=== PATIENT | male | born 1990 | race Hispanic/Latino ===

== ENCOUNTER 2018-01-06 11:35 | Emergency (ER) | payer OTHER ==
[2018-01-06] MEDS ORDERED: Sodium Chloride 0.9% 1,000 ML IV STA ×2 (12:18→15:26)
--- NOTE | 2018-01-06 12:43 | ED PDOC ---
HPI: General Adult Time Seen by Provider: 01/06/18 12:02 Chief Complaint (Nursing): GI Problem Chief Complaint (Provider): GI problem History Per: Patient History/Exam Limitations: no limitations Onset/Duration Of Symptoms: Days (x3) Current Symptoms Are (Timing): Still Present Additional Complaint(s): 27 year old male presents to the ED complaining of fever and constipation. For 3 weeks, patient has been unable to have normal bowel movements and had a small bowel movement 3 days ago. Patient had tried straining but felt like he was going to pass out so stopped. No blood was present. Patient is also complaining of abdominal pain and discomfort. He states he had spaghetti and meatballs and felt nauseous and felt like vomiting. He felt his whole body shake or twitch. He indicates he was sweating but also felt really cold. Today was his first day off from work so presented to the ED. Patient is unable to tolerate PO at this time. Denies fever, SOB, CP, pain on urination, testicular pain or swelling, or penile discharge. Patient is otherwise healthy. Patient is allergic to penicillin and doxycycline which causes rash when taken. Patient works as a police captain senior. PMD: none Past Medical History Reviewed: Historical Data, Nursing Documentation, Vital Signs Vital Signs: Last Vital Signs Temp 100.0 F H 01/06/18 19:43 Pulse 90 01/06/18 19:43 Resp 16 01/06/18 19:43 BP 133/71 01/06/18 19:43 Pulse Ox 100 01/06/18 19:43 - Medical History PMH: Gastritis Other PMH: Stomach ulcer - Surgical History Surgical History: No Surg Hx - Family History Family History: States: Other Other Family History: Father had diverticulitis leading to bowel perforation requiring colostomy - Social History Drugs: Denies - Home Medications Home Medications: Ambulatory Orders Medication Instructions Recorded Aluminum Hydroxide/Magnesium H 30 ml PO QID #300 ml 03/24/16 [Maalox 30 ml] Famotidine [Pepcid] 20 mg PO DAILY #10 tab 03/24/16 Lidocaine HCl [Lidocaine HCl 15 ml MM BID #150 ml 03/24/16 Viscous] - Allergies Allergies/Adverse Reactions: Allergies Allergy/AdvReac Type Severity Reaction Status Date / Time doxycycline Allergy RASH Verified 03/24/16 17:55 Penicillins Allergy RASH Verified 03/24/16 17:55 Review of Systems ROS Statement: Except As Marked, All Systems Reviewed And Found Negative Constitutional: Positive for: Fever Cardiovascular: Negative for: Chest Pain Respiratory: Negative for: Shortness of Breath Gastrointestinal: Positive for: Abdominal Pain, Constipation Genitourinary Male: Negative for: Other (pain with urination and testicular pain /swelling) Neurological: Positive for: Other (Body shaking) Physical Exam - Reviewed Nursing Documentation Reviewed: Yes Vital Signs Reviewed: Yes - Physical Exam Appears: Positive for: Non-toxic, No Acute Distress, Uncomfortable Head Exam: Positive for: ATRAUMATIC, NORMOCEPHALIC Skin: Positive for: Normal Color, Warm, Dry Eye Exam: Positive for: Normal appearance Neck: Positive for: Normal, Painless ROM Cardiovascular/Chest: Positive for: Regular Rate, Rhythm. Negative for: Murmur Respiratory: Positive for: Normal Breath Sounds. Negative for: Wheezing, Respiratory Distress Gastrointestinal/Abdominal: Positive for: Tenderness (Diffusely), Guarding Male Genital Exam: Positive for: other (Deferred) Extremity: Positive for: Normal ROM Neurologic/Psych: Positive for: Alert, Oriented. Negative for: Motor/Sensory Deficits - Laboratory Results Result Diagrams: 01/06/18 13:01 01/06/18 13:01 - ECG O2 Sat by Pulse Oximetry: 98 (RA) Pulse Ox Interpretation: Normal Medical Decision Making Medical Decision Making: Initial Impression: Patient with 3 weeks with constipation and 1 day of fever. Work up for intrabdominal pathology, possible obstruction. Initial Plan: --Type and Screen --Venous blood gas --ECG --CMP --Lipase --CBC --Partial thromboplastin --Prothrombin --Sodium chloride 1000mL IV --Tylenol 650mg PO --Zofran 4mg IV --Urinalysis Initially labs with abdominal enzymes sent and abdominal chest x-rays, IV fluids , Tylenol, and Zofran sent. Possible CT abd/pelvis to r/o obstruct. Reassess patient. Time: 1844 CT ABD RESULST FINDINGS: Lung bases: Minimal dependent microatelectasis. ABDOMEN: Liver: There is hepatomegaly and fatty infiltration of the liver. Gallbladder and bile ducts: Unremarkable. No calcified stones. No ductal dilation. Pancreas: Unremarkable. No mass. No ductal dilation. Spleen: The spleen is mildly prominent Adrenals: Unremarkable. No mass. Kidneys and ureters: Unremarkable. No solid mass. No hydronephrosis. Stomach and bowel: Small fat-containing non-bowel containing umbilical hernia. Suggestion of mild wall thickening of the terminal ileum which may be due to nondistention. Moderate deformity fecal loading of the colon. PELVIS: Appendix: Normal appendix Bladder: Distended bladder Reproductive: Unremarkable as visualized. ABDOMEN and PELVIS: Intraperitoneal space: Unremarkable. No free air. No significant fluid collection. Bones/joints: There is a mild pectus excavatum deformity of the anterior chest wall. No acute fracture. No dislocation. Soft tissues: See above. Vasculature: Unremarkable. No abdominal aortic aneurysm. Lymph nodes: There are right lower quadrant lymph nodes which can be seen with viral syndrome/mesenteric adenitis in the correct clinical situation. This finding can also be secondary to a variety of bacterial or other inflammatory processes, but clinical correlation with appropriate follow-up recommended. IMPRESSION: Right lower quadrant lymph nodes.Compatible with mesenteric adenitis in the correct clinical presentation. This may be on basis of a terminal ileitis, the latter requires clinical correlation. Hepatosplenomegaly Thank you for allowing us to participate in the care of your patient. Dictated and Authenticated by: Jasmin Shah MD 01/06/2018 6:45 PM Eastern Time ([place] & [place]) Scribe Attestation: Documented by Cruz Lubin acting as a scribe for Rehsma Torre MD. Provider Scribe Attestation: All medical record entries made by the Scribe were at my direction and personally dictated by me. I have reviewed the chart and agree that the record accurately reflects my personal performance of the history, physical exam, medical decision making, and the department course for this patient. I have also personally directed, reviewed, and agree with the discharge instructions and disposition. Pt with improved vitals, afebrile, and tolerating PO. CT abd/pelvis showed non- specific findings of mesenteric adenitis, and RLQ lymph nodes, and mild hepatomegaly. Findings discussed with the patient and his family. Pt advised to take Tylenol for pain/fever, increase fluid intake, and fruits/veggies for constipation. Pt take MgCitrate if constipation not resolved. Pt advised to return to the emergency department if symptoms do not improve in 48 hours or if symptoms worsen. Family and patient agree with plan. Disposition - Clinical Impression Clinical Impression: Abdominal pain, Constipation, Fever - Disposition Referrals: Jay Hameed [Outside] Disposition: Routine/Home Disposition Time: 19:21 Condition: IMPROVED Additional Instructions: Increase fluid intake for the next 48 hours. Take Tylenol for pain and/or fever. Increase fruits and vegitable intake to prevent constipation. If constipation not resolved, take 1/2 bottle of Magnesium Citrate (5ml) mixed with water. If no relief in 3 hours, take the other half of the bottle. If fever worsens, pain worsens, or new symptoms develop, return to the emergency department. Instructions: Low Back Pain in Adults, Viral Gastroenteritis, Constipation, Adult (DC) Forms: [employer] ([place]), [facility] ED School/Work Excuse Print Language: LATVIAN
[2018-01-06 13:08] LABS: BASO % 0.3 % (0.0-2.0); EOS % 0.1 % (0.0-4.0); LYMPH # 0.8 K/uL (1.0-4.3); LYMPH % 4.7 % (20.0-40.0); MEAN CELL VOLUME 86.6 fl (80.0-94.0); MEAN CORPUSCULAR HGB CONC 33.5 g/dL (33.0-37.0); MEAN PLATELET VOLUME 10.2 fl (7.2-11.7); MONO # 1.5 K/uL (0.0-0.8); MONO % 8.6 % (0.0-10.0); NEUT # 14.7 K/uL (1.8-7.0); NEUT % 86.3 % (50.0-75.0); PLATELET COUNT 144 K/uL (130-400); RBC 5.17 Mil/uL (4.40-5.90); RED CELL DISTRIBUTION WIDTH 12.7 % (11.5-14.5)
[2018-01-06 13:12] LABS: VENOUS BLOOD GAS BASE EXCESS 1.9 mmol/L (0.0-2.0); VENOUS BLOOD GAS PCO2 41 mmHg (40-60); VENOUS BLOOD GAS PO2 42 mm/Hg (30-55); VENOUS BLOOD PH 7.42 (7.32-7.43)
[2018-01-06 13:16] LABS: INR 1.2; PROTHROMBIN TIME 13.4 Seconds (9.8-13.1)
[2018-01-06 13:18] LABS: SQUAMOUS EPITHIAL < 1 /hpf (0-5); URINE BILIRUBIN NEGATIVE (NEGATIVE); URINE BLOOD NEGATIVE (NEGATIVE); URINE CLARITY SLIGHTY-CLOUDY (Clear); URINE COLOR YELLOW (YELLOW); URINE GLUCOSE (UA) NEG (Normal); URINE LEUKOCYTE ESTERASE NEG Leu/uL (Negative); URINE PROTEIN 30 mg/dL (NEGATIVE); URINE UROBILINOGEN 0.2-1.0 mg/dL (0.2-1.0)
[2018-01-06 13:19] LABS: PARTIAL THROMBOPLASTIN TIME 31.9 Seconds (25.6-37.1)
[2018-01-06 13:24] LABS: ALB/GLOB RATIO 1.5 (1.0-2.1); ALBUMIN 4.5 g/dL (3.5-5.0); ALT/SGPT 34 U/L (21-72); AST/SGOT 21 U/L (17-59); BLOOD UREA NITROGEN 16 mg/dl (9-20); CALCIUM 9.5 mg/dL (8.4-10.2); GFR NON-AFRICAN AMERICAN > 60; LIPASE 61 U/L (23-300)
[2018-01-06 13:34] LABS: NEUTROPHIL 87 % (42-75); TOTAL CELLS COUNTED 100
[2018-01-06 13:35] LABS: LYMPHOCYTE 8 % (20-50); MONOCYTE 5 % (0-10); PLATELET ESTIMATE NORMAL (NORMAL)
[2018-01-06] MEDS ORDERED: Iohexol 240 (50 ml) PO STA ×2 (15:19)
--- NOTE | 2018-01-06 15:25 | RAD ---
Date of service: 01/06/2018 HISTORY: Abdominal pain, constipation, fever COMPARISON: Comparison made with chest radiograph dated 03/24/2016. FINDINGS: Lung gaona clear without focal consolidation. No effusion or apparent pneumothorax BOWEL: Normal. No obstruction however findings suggest mild constipation. No free air. BONES: Normal. OTHER FINDINGS: None. IMPRESSION: No active disease. Findings suggest mild constipation.
[2018-01-06] MEDS ORDERED: Sodium Chloride 0.9% 50 ML IV ONE (17:35)
[2018-01-06] MEDS ORDERED: Iohexol 300 100 ML IJ ONE (17:35)
[2018-01-06 19:44] VITALS: BP 133/71; PULSE 90; RESP 16; TEMP 100
--- NOTE | 2018-01-07 12:11 | CARD ---
APPROVED REPORT Date of service: 01/06/2018 <Conclusion> Sinus tachycardia Otherwise normal ECG
--- NOTE | 2018-01-07 13:12 | CT ---
Date of service: 01/06/2018 PROCEDURE: CT abdomen pelvis HISTORY: Abdominal pain with fever and leukocytosis COMPARISON: Correlation with chest and abdominal series obtained earlier same day TECHNIQUE: CT scan abdomen pelvis performed following oral and intravenous contrast injection. Additional 2D sagittal and coronal reformats provided. The Contrast dose: 95 cc Omnipaque 300 Radiation dose: Total exam DLP = 604.84 mGy-cm. This CT exam was performed using one or more of the following dose reduction techniques: Automated exposure control, adjustment of the mA and/or kV according to patient size, and/or use of iterative reconstruction technique. FINDINGS: LOWER THORAX: Minor passive/dependent type atelectasis both posterior lower lung zones. No effusion or basilar pneumothorax. Heart size within range of normal. No significant pericardial effusion LIVER: Liver is enlarged measuring over 26 1 cm in CC dimension. Mild fatty hepatic infiltration. No obvious hepatic mass collection or calcification. Portal and splenic veins are opacified. GALLBLADDER AND BILE DUCTS: Unremarkable. No intraluminal gallbladder calculi PANCREAS: Unremarkable. No gross lesion or ductal dilatation. SPLEEN: Spleen is mildly enlarged measuring nearly 14 cm in its AP dimension. ADRENALS: No adrenal lesions seen. KIDNEYS AND URETERS: Kidneys demonstrate symmetric nephrograms. No evidence of nephrolithiasis or hydronephrosis. VASCULATURE: Unremarkable. No aortic aneurysm. BOWEL: Stomach is incompletely distended. There appears to be some mild wall thickening of the terminal ileum; rule out terminal ileitis versus on sequela of incomplete distention/peristalsis. Remaining loops small bowel unremarkable. Stool and air seen throughout the large bowel with the largest amount of stool seen in the cecum and ascending colon suggesting mild fecal retention/constipation. APPENDIX: Appendix is best seen on axial image number [id number]. No periappendiceal inflammatory changes. PERITONEUM: No evidence of free or loculated fluid collections. No free intraperitoneal air. Small fat containing umbilical hernia. LYMPH NODES: Multiple small to medium-sized right lower quadrant mesenteric lymph nodes are present ; rule out viral syndrome versus mesenteric adenitis. Clinical correlation recommended. BLADDER: Urinary bladder is moderately distended. No intraluminal urinary bladder calculi. REPRODUCTIVE: Unremarkable. BONES: No acute fracture. OTHER FINDINGS: None. IMPRESSION: Mild wall thickening of the terminal ileum; rule out incomplete distention and peristalsis versus min terminal ileitis. There are multiple small to medium-sized right lower quadrant mesenteric lymph nodes; rule out viral syndrome versus mesenteric adenitis. Hepatosplenomegaly. Mild fatty hepatic infiltration. Findings suggest mild constipation. The
[2018-01-07 14:38] VITALS: O2SAT 98
== END 2018-01-06 19:44 | disposition home or self-care (01) ==
LOC: H.ER 11:35
DX: K59.00 Constipation, unspecified (principal); R10.9 Unspecified abdominal pain; R50.9 Fever, unspecified; Z87.19 Personal history of other diseases of the digestive system; Z88.0 Allergy status to penicillin
CPT/HCPCS: 74022; 74177; 80053; 81003; 82803; 83690; 85025; 85610; 85730; 86850; 86900; 93005; 96361; 96374; 99284; J2405; J7030; Q9966; Q9967